=== PATIENT | female | born 1940 | race Caucasian/White ===

== ENCOUNTER 2016-06-28 11:00 | Observation (INO) | payer OTHER ==
[2016-06-28] VITALS (9 sets, daily range): BP systolic 132–158; BP diastolic 72–89; PULSE 72–81; RESP 17–20; TEMP 96.1–98.3; O2SAT 94–100
[~2016-06-28 11:00] MED LIST: Z.0.NO CURRENT MEDS
[2016-06-28] MEDS ORDERED: SODIUM CHLORIDE 0.9% FLUSH 5 ML FLUSH IVF PRN ×2 (11:15→12:30)
[2016-06-28 11:18] LABS: BASOPHIL # 0.1 TH/MM3 (0-0.2); BASOPHIL % 1.4 % (0.0-2.0); EOSINOPHIL # 0.2 TH/MM3 (0-0.4); EOSINOPHIL % 2.7 % (0.0-4.0); HEMATOCRIT 42.5 % (35.0-46.0); HEMO FLAGS DIFF FINAL; LYMPH % 17.7 % (9.0-44.0); LYMPHOCYTE # 1.2 TH/MM3 (1.0-4.8); MEAN CELL VOLUME 92.1 FL (80.0-100.0); MEAN CORPUSCULAR HEMOGLOBIN 31.4 PG (27.0-34.0); MEAN CORPUSCULAR HGB CONC 34.1 % (32.0-36.0); MONO % 8.9 % (0.0-8.0); NEUT % 69.3 % (16.0-70.0); PLATELET COUNT 336 TH/MM3 (150-450); RED BLOOD COUNT 4.62 MIL/MM3 (4.00-5.30); RED CELL DISTRIBUTION WIDTH 14.4 % (11.6-17.2); WHITE BLOOD COUNT 7.1 TH/MM3 (4.0-11.0)
[2016-06-28 11:30] LABS: CHLORIDE 102 MEQ/L (98-107); POTASSIUM 4.3 MEQ/L (3.5-5.1); SODIUM (NA) 139 MEQ/L (136-145)
[2016-06-28 11:33] LABS: ANION GAP 10 MEQ/L (5-15); BICARBONATE 27.4 MEQ/L (21.0-32.0)
[2016-06-28 11:34] LABS: BLOOD UREA NITROGEN 12 MG/DL (7-18)
--- NOTE | 2016-06-28 11:34 | PD ---
HPI Chief Complaint: Chest Pain Time Seen by Provider: 11:09 Travel History International Travel<30 days: No Contact w/Intl Traveler<30days: No Traveled to known affect area: No History of Present Illness HPI This is a 75 year old female who presents to the emergency department with chest pain. Pt. describes the pain as dull with occasional "jabs" of sharp pain , for three days, constant, not associated with exertion, radiating to the left elbow. PT. has been taking baby aspirin but it is not helping. Pt. reports the jabs get up to 8/10 when they are severe. Pt. did have a chest cold preceding this, but her cough has improved and her pain is still there. PFSH Past Medical History Medical History: Denies Significant Hx Blood Disorders: No Cancer: No Cardiovascular Problems: Yes COPD: Yes Diabetes: No Diminished Hearing: No Endocrine: No Genitourinary: No Hypertension: Yes Immune Disorder: No Musculoskeletal: No Neurologic: No Psychiatric: No Reproductive: No Respiratory: Yes Immunizations Current: No Thyroid Disease: No Tetanus Vaccination: > 5 Years Influenza Vaccination: No Past Surgical History Appendectomy: Yes Hysterectomy: Yes Other Surgery: Yes Social History Alcohol Use: Yes (WINE) Tobacco Use: Yes (1-2 cigarettes a day( not for a week )) Substance Use: No Allergies-Medications (Allergen,Severity, Reaction): Coded Allergies: No Known Allergies (Verified , 03/10/12) Reported Meds & Prescriptions Reported Meds & Active Scripts Active Review of Systems Except as stated in HPI: all other systems reviewed are Neg Physical Exam Narrative GENERAL:Well appearing, no acute distress SKIN: Warm and dry. HEAD: Atraumatic. Normocephalic. EYES: Pupils equal and round. No injection or drainage. ENT: Moist mucous membranes NECK: Trachea midline. CARDIOVASCULAR: Regular rate and rhythm. No murmur appreciated. RESPIRATORY: Mild expiratory wheezing, no accessory muscle use GASTROINTESTINAL: Abdomen soft, non-tender, nondistended. MUSCULOSKELETAL: No obvious deformities. NEUROLOGICAL: Awake and alert. No obvious cranial nerve deficits. Moving all extremities. PSYCHIATRIC: Appropriate mood and affect; insight and judgment normal. Data Data Last Documented VS Vital Signs Date Time Temp Pulse Resp B/P Pulse Ox O2 Delivery O2 Flow Rate FiO2 06/28/16 11:42 20 99 06/28/16 11:20 Room Air 06/28/16 11:15 98.3 72 158/89 Orders Electrocardiogram (06/28/16 11:10) Complete Blood Count With Diff (06/28/16 11:10) Comprehensive Metabolic Panel (06/28/16 11:10) Troponin I (06/28/16 11:10) Chest, Single Ap (06/28/16 11:10) Ecg Monitoring (06/28/16 11:10) Bilateral Bp Monitoring (06/28/16 11:10) Iv Access Insert/Monitor (06/28/16 11:10) Oximetry (06/28/16 11:10) Oxygen Administration (06/28/16 11:10) Sodium Chloride 0.9% Flush (Ns Flush) (06/28/16 11:15) Aspirin Chew (Aspirin Chew) (06/28/16 11:45) Labs Laboratory Tests Test 06/28/16 11:10 White Blood Count 7.1 TH/MM3 Red Blood Count 4.62 MIL/MM3 Hemoglobin 14.5 GM/DL Hematocrit 42.5 % Mean Corpuscular Volume 92.1 FL Mean Corpuscular Hemoglobin 31.4 PG Mean Corpuscular Hemoglobin 34.1 % Concent Red Cell Distribution Width 14.4 % Platelet Count 336 TH/MM3 Mean Platelet Volume 7.4 FL Neutrophils (%) (Auto) 69.3 % Lymphocytes (%) (Auto) 17.7 % Monocytes (%) (Auto) 8.9 % Eosinophils (%) (Auto) 2.7 % Basophils (%) (Auto) 1.4 % Neutrophils # (Auto) 5.0 TH/MM3 Lymphocytes # (Auto) 1.2 TH/MM3 Monocytes # (Auto) 0.6 TH/MM3 Eosinophils # (Auto) 0.2 TH/MM3 Basophils # (Auto) 0.1 TH/MM3 CBC Comment DIFF FINAL Differential Comment Sodium Level 139 MEQ/L Potassium Level 4.3 MEQ/L Chloride Level 102 MEQ/L Carbon Dioxide Level 27.4 MEQ/L Anion Gap 10 MEQ/L Blood Urea Nitrogen 12 MG/DL Creatinine 0.70 MG/DL Estimat Glomerular Filtration 82 ML/MIN Rate Random Glucose 85 MG/DL Calcium Level 9.0 MG/DL Total Bilirubin 0.4 MG/DL Aspartate Amino Transf 6 U/L (AST/SGOT) Alanine Aminotransferase 15 U/L (ALT/SGPT) Alkaline Phosphatase 70 U/L Troponin I LESS THAN 0.02 NG/ML Total Protein 7.7 GM/DL Albumin 4.2 GM/DL MDM Medical Decision Making Medical Screen Exam Complete: Yes Emergency Medical Condition: Yes Interpretation(s) EKG: Normal sinus rhythm with no ST changes Vital signs are reassuring No leukocytosis Electrolytes are reassuring Troponin is normal Differential Diagnosis Acute coronary syndrome, costochondritis, pneumonia, pleural effusion, pulmonary embolism Narrative Course This is a 75-year-old female who presents to the emergency department with a history of mild coronary artery disease with atypical chest pain. She was placed in a monitor and an IV was established. She was given aspirin. EKG is nonischemic. Labs are reassuring including a normal troponin. Patient says her last stress test was at least 2 years ago. I think she requires observation for serial cardiac enzymes and risk stratification. Diagnosis Primary Impression: Chest pain Qualified Code: R07.89 - Other chest pain Admitting Information Admitting Physician Requests: Observation Marylu Charles MD Jun 28, 2016 11:34
[2016-06-28 11:36] LABS: ALT (GPT) 15 U/L (10-53); AST (GOT) 6 U/L (15-37)
[2016-06-28 11:37] LABS: GLOMERULAR FILTRATION RATE 82 ML/MIN (>89)
[2016-06-28 11:38] LABS: TOTAL BILIRUBIN ADULT 0.4 MG/DL (0.2-1.0)
[2016-06-28 11:39] LABS: ALKALINE PHOSPHATASE 70 U/L (45-117)
[2016-06-28] MEDS ORDERED: ASPIRIN 81 MG CHEW TAB CHEW ONE (11:45)
--- NOTE | 2016-06-28 12:26 | RADHPO ---
EXAM DATE/TIME: 06/28/2016 11:48 [facility] COMPARISON: CHEST SINGLE AP, March 08, 2012, 15:24. INDICATIONS : Chest pain (dull ache) x 3 days. MEDICAL HISTORY : Hypertension. Chronic obstructive pulmonary disease. SURGICAL HISTORY : Arthroscopy. Hysterectomy. ENCOUNTER: Initial ACUITY: 3 days PAIN SCORE: 6/10 LOCATION: chest FINDINGS: A single view of the chest demonstrates minimal linear scarring or atelectasis at the bases. No effus ion. No pneumothorax. Heart size within normal limits. Aorta mildly tortuous. CONCLUSION: 1. Minimal basilar atelectasis or scarring. No effusion or pneumothorax. Mild scoliosis. Manuel Gold MD on June 28, 2016 at 12:21 Board Certified Radiologist. This report was verified electronically.
[2016-06-28] MEDS ORDERED: MORPHINE SULFATE 4 MG/ML INJ IV PRN (12:30)
[2016-06-28] MEDS ORDERED: ONDANSETRON HCL 4 MG/2 ML VIAL IV PRN (12:30)
[2016-06-28] MEDS ORDERED: ACETAMINOPHEN 500 MG CPLT PO PRN (12:30)
[2016-06-28] MEDS ORDERED: NITROGLYCERIN 0.4 MG SL 25 TABS/BTL SL PRN (12:30)
[2016-06-28 14:41] LABS: CREATINE KINASE 47 U/L (26-192)
--- NOTE | 2016-06-28 15:27 | HHI.HP ---
[facility] Zachary Josue MD Admission Diagnosis chest pain Diagnoses: (1) Chest pain Diagnosis: Principal (2) Tobacco use Diagnosis: Secondary Chief Complaint: Chest pain Travel History International Travel<30 Days: No Contact w/Intl Traveler <30 Da: No Traveled to Known Affected Are: No History of Present Illness 75-year-old female with known history of tobacco use who presented to the hospital because of chest pain. Patient states over the last 3 days she has been having intermittent chest pain located in the middle part of her chest with intermittent radiation to the left shoulder. She indicates that the pain can happen any time whether she is exerting herself or at rest. She states that sometimes when she twists the wrong way the pain will happen. Patient characterizes the pain as 8/10 on pain scale at its worst. Lasting for a couple seconds at a time. He denies any nausea, vomiting, diaphoresis, shortness of breath, dyspnea. Patient never had a cardiac workup done in the past. She has no chronic medical illnesses. Risk factors include tobacco use and age. Commended by ER physician that patient be observed in the hospital for further evaluation and management. Review of Systems Constitutional: DENIES: Diaphoretic episodes, Fatigue, Fever, Weight gain, Weight loss, Chills, Dizziness, Change in appetite, Night Sweats Eyes: DENIES: Blurred vision, Diplopia, Eye inflammation, Eye pain, Vision loss , Double Vision Ears, nose, mouth, throat: DENIES: Vertigo, Nasal discharge, Throat pain, Ear Pain, Running Nose, Sinus Pain Respiratory: DENIES: Apneas, Cough, Snoring, Wheezing, Hemoptysis, Sputum production, Shortness of breath Cardiovascular: COMPLAINS OF: Chest pain, DENIES: Palpitations, Syncope, Dyspnea on Exertion, Lower Extremity Edema, Orthopnea Gastrointestinal: DENIES: Abdominal pain, Black stools, Bloody stools, Constipation, Diarrhea, Nausea, Vomiting, Difficulty Swallowing, Anorexia Neurologic: DENIES: Abnormal gait, Headache, Localized weakness, Paresthesias, Seizures, Speech Problems, Tremor, Poor Balance Past Family Social History Past Medical History Tobacco use Past Surgical History Appendectomy Hysterectomy Reported Medications Reported Meds & Active Scripts Active Allergies: Coded Allergies: No Known Allergies (Verified , 03/10/12) Family History Reviewed and significant for cancer Social History Patient is down to 1-2 cigarettes daily. She was up to 1 pack a cigarettes a day since she was 19 years old. Drinks wine occasionally. Denies any illicit drug use Physical Exam Vital Signs Vital Signs Date Time Temp Pulse Resp B/P Pulse Ox O2 Delivery O2 Flow Rate FiO2 06/28/16 14:21 100 21 06/28/16 13:53 78 20 132/72 98 06/28/16 12:32 74 20 154/82 98 06/28/16 11:42 20 99 06/28/16 11:21 99 06/28/16 11:20 99 Room Air 06/28/16 11:15 98.3 72 20 158/89 99 Physical Exam GENERAL: Well-developed, well-nourished, in no acute distress. alert and orientated HEENT: Head is normocephalic without any lesions or masses noted. Facial features are symmetric. Eyes: Pupils equal round reactive to light. Extraocular muscles are intact. Conjunctivae were clear. Oropharyngeal: Pharynx without any erythema edema. Tongue is midline without deviation. Buccal mucosa is moist without any masses or lesions NECK: Supple without any masses. Trachea midline no deviation. No JVD, no bruits are appreciated CARDIAC: Regular rhythm, regular rate. S1/S2 are heard. No murmurs gallops or rubs. LUNGS: Clear to auscultation bilaterally. No wheeze, rhonchi or rales. No use of accessory muscles on inspiration or expiration. ABDOMEN: Soft, nontender. Nondistended. Bowel sounds heard in all 4 quadrants. No organomegaly or masses. Negative rebound, negative guarding EXTREMITIES: No edema, pulses are equal bilaterally. No cyanosis or clubbing NEUROLOGY: Mood and affect appear appropriate. Cranial nerves II through XII grossly intact. Muscle strength 5/5 in upper and lower extremities bilaterally. Deep tendon reflexes are 2+ in upper and lower extremities bilaterally. Laboratory Laboratory Tests Test 06/28/16 06/28/16 11:10 14:05 White Blood Count 7.1 Red Blood Count 4.62 Hemoglobin 14.5 Hematocrit 42.5 Mean Corpuscular Volume 92.1 Mean Corpuscular Hemoglobin 31.4 Mean Corpuscular Hemoglobin 34.1 Concent Red Cell Distribution Width 14.4 Platelet Count 336 Mean Platelet Volume 7.4 Neutrophils (%) (Auto) 69.3 Lymphocytes (%) (Auto) 17.7 Monocytes (%) (Auto) 8.9 Eosinophils (%) (Auto) 2.7 Basophils (%) (Auto) 1.4 Neutrophils # (Auto) 5.0 Lymphocytes # (Auto) 1.2 Monocytes # (Auto) 0.6 Eosinophils # (Auto) 0.2 Basophils # (Auto) 0.1 CBC Comment DIFF FINAL Differential Comment Sodium Level 139 Potassium Level 4.3 Chloride Level 102 Carbon Dioxide Level 27.4 Anion Gap 10 Blood Urea Nitrogen 12 Creatinine 0.70 Estimat Glomerular Filtration 82 Rate Random Glucose 85 Calcium Level 9.0 Total Bilirubin 0.4 Aspartate Amino Transf 6 (AST/SGOT) Alanine Aminotransferase 15 (ALT/SGPT) Alkaline Phosphatase 70 Troponin I LESS THAN 0.02 LESS THAN 0.02 Total Protein 7.7 Albumin 4.2 Total Creatine Kinase 47 Result Diagram: 06/28/16 1110 06/28/16 1110 Imaging Last Impressions Chest X-Ray 06/28/16 1110 Signed Impressions: Service Date/Time: Tuesday, June 28, 2016 11:48 - CONCLUSION: 1. Minimal basilar atelectasis or scarring. No effusion or pneumothorax. Mild scoliosis. Manuel Gold MD Assessment and Plan Assessment and Plan Chest pain, atypical Patient with risk factors to include age, tobacco use We'll continue to rule patient out for any acute coronary event with serial cardiac enzymes and serial EKGs Patient unable pursue exercise stress test, if patient ruled out for acute coronary event, will pursue nuclear stress test Continue aspirin and nitroglycerin as needed Tobacco use Counseled on cessation To Sequential compression devices Written by Gopi Villavicencio PA-C, acting as scribe for Dr. Kilpatrick on 06/28/16 at 1535. The documentation accurately reflects the work and decisions performed face-to- face by Dr. Kilpatrick on 06/28/16 at 1535. Problem Qualifiers (1) Chest pain: Qualified Code: R07.89 - Other chest pain Gopi Villavicencio Jun 28, 2016 15:27
[2016-06-28 17:54] LABS: CREATINE KINASE 46 U/L (26-192)
[2016-06-28] MEDS: SODIUM CHLORIDE 0.9% FLUSH 5 ML FLUSH IVF SCH (22:12)
[2016-06-29] VITALS: BP 137/80; PULSE 72; RESP 20; TEMP 97.1; O2SAT 96
[2016-06-29 04:00] VITALS: BP 148/88; PULSE 80; RESP 20; TEMP 96.9; O2SAT 96
[2016-06-29 07:00] VITALS: PULSE 74
[2016-06-29 08:00] VITALS: BP 121/77; PULSE 82; RESP 20; TEMP 96.9; O2SAT 94
[2016-06-29] MEDS: SODIUM CHLORIDE 0.9% FLUSH 5 ML FLUSH IVF SCH (09:00)
[2016-06-29] MEDS ORDERED: ASPIRIN 325 MG TAB PO SCH (09:00)
[2016-06-29] MEDS ORDERED: REGADENOSON INJ 0.4 MG/5 ML SYR IV ONE (09:45)
[2016-06-29] MEDS ORDERED: PNEUMOCOCCAL POLYVALENT INJ 25 MCG/0.5 ML SYR IM ONE (10:00)
--- NOTE | 2016-06-29 11:11 | RADHPO ---
EXAM DATE/TIME: 06/29/2016 09:22 [facility] COMPARISON: MYOCARDIAL PERF PHARM SPECT, GATED W/EF, March 10, 2012, 10:06. INDICATIONS : Chest pain for 3 days. Current smoker. Angina. DOSE: 27.4 mCi Tc99m Myoview at stress. 8.5 mCi Tc99m Myoview at rest. 0.4 mg Lexiscan STRESS SYMPTOMS: Chest heaviness, shortness of breath and lightheaded. EJECTION FRACTION: > 70% MEDICAL HISTORY : Hypertension. Chronic obstructive pulmonary disease. SURGICAL HISTORY : Hysterectomy. Cholecystectomy. ENCOUNTER: Initial ACUITY: 3 days PAIN SCALE: 8/10 LOCATION: Bilateral chest TECHNIQUE: The patient underwent pharmacologic stress with infusion of prescribed dose. Continuous ECG tracing was monitored during stress. Gated SPECT imaging was performed after stress and conventional SPECT i maging was performed at rest. The examination was performed on a SPECT/CT scanner, both attenuation and non-corrected datasets were reviewed. FINDINGS: DISTRIBUTION: The maximum perfused segment at stress is in the lateral wall. PERFUSION STUDY: The pattern of perfusion at stress is within normal limits. GATED STUDY: There is intact wall motion and thickening without hypokinetic or dyskinetic segments. CONCLUSION: 1. Unremarkable myocardial perfusion scan. RISK CATEGORY: Low (<1% Annual Mortality Rate) Maximo Ricci MD on June 29, 2016 at 11:09 Board Certified Radiologist. This report was verified electronically.
--- NOTE | 2016-06-29 11:16 | HHI.DCPOC ---
Discharge Care Plan Diagnosis: (1) Chest pain Your Health Problems Are: Chest Pain Goals to Promote Your Health * To prevent worsening of your condition and complications * To maintain your health at the optimal level Directions to Meet Your Goals Take your medications as prescribed Follow your dietary instruction Follow activity as directed Keep your appointments as scheduled Take your immunizations and boosters as scheduled If your symptoms worsen call your PCP, if no PCP go to Urgent Care Center or Emergency Room Smoking is Dangerous to Your Health. Avoid second hand smoke Call the 24-hour hour crisis hotline for domestic abuse at Gopi Villavicencio Jun 29, 2016 11:16
--- NOTE | 2016-06-29 11:21 | HHI.PR ---
Subjective Remarks Patient seen and examined today. Patient states that she did have some mild chest discomfort again this morning. Patient has undergone stress test which was negative. Results were given to the patient she is quite happy of the outcome. I'll notify the patient follow-up with her primary medical doctor to evaluate for any other etiologies in outpatient setting. Objective Vitals Vital Signs Date Time Temp Pulse Resp B/P Pulse Ox O2 Delivery O2 Flow Rate FiO2 06/29/16 08:00 96.9 82 20 121/77 94 06/29/16 04:00 96.9 80 20 148/88 96 06/29/16 00:00 97.1 72 20 137/80 96 06/28/16 20:15 81 06/28/16 20:07 94 21 06/28/16 20:00 96.4 73 20 133/80 94 06/28/16 17:45 96.1 76 17 137/80 96 06/28/16 14:21 100 21 06/28/16 13:53 78 20 132/72 98 06/28/16 12:32 74 20 154/82 98 06/28/16 11:42 20 99 06/28/16 11:21 99 06/28/16 11:20 99 Room Air I/O 06/28/16 06/28/16 06/28/16 06/29/16 06/29/16 06/29/16 07:00 15:00 23:00 07:00 15:00 23:00 Intake Total 240 ml 0 ml 200 ml Balance 240 ml 0 ml 200 ml Intake Oral 240 ml 0 ml 200 ml # Voids 2 1 2 # Bowel Movements 0 0 Result Diagram: 06/28/16 1110 06/28/16 1110 Objective Remarks GENERAL: Well-developed, well-nourished, in no acute distress. alert and orientated HEENT: Head is normocephalic without any lesions or masses noted. Facial features are symmetric. Eyes: Extraocular muscles are intact. Conjunctivae were clear. NECK: Supple without any masses. Trachea midline no deviation. No JVD, no bruits are appreciated CARDIAC: Regular rhythm, regular rate. S1/S2 are heard. No murmurs gallops or rubs. LUNGS: Clear to auscultation bilaterally. No wheeze, rhonchi or rales. No use of accessory muscles on inspiration or expiration. ABDOMEN: Soft, nontender. Nondistended. Bowel sounds heard in all 4 quadrants. No organomegaly or masses. Negative rebound, negative guarding EXTREMITIES: No edema, pulses are equal bilaterally. No cyanosis or clubbing NEUROLOGY: Mood and affect appear appropriate. Cranial nerves II through XII grossly intact. Moving all extremities, speech is clear Urinary Catheter: No Vascular Central Line Catheter: No A/P Assessment and Plan Chest pain, atypical Patient with risk factors to include age, tobacco use Serial cardiac enzymes were performed which remained negative. Patient ruled out for acute coronary event Serial EKGs were performed and reviewed by myself which shows sinus rhythm without any changes Patient has undergone nuclear stress test which remained negative for any ischemia Continue aspirin and nitroglycerin as needed Tobacco use Counseled on cessation To Sequential compression devices Written by Gopi Villavicencio PA-C, acting as scribe for Dr. Kilpatrick on 06/29/16 at 1120. The documentation accurately reflects the work and decisions performed face-to- face by Dr. Kilpatrick on 06/29/16 at 1120. Discharge Planning Discharge home in stable condition Activity: Ad denzel. Diet: Regular diet Medications per medication reconciliation Follow-up primary medical doctor in one week Gopi Villavicencio Jun 29, 2016 11:21
[2016-06-29 12:00] VITALS: BP 127/72; PULSE 83; RESP 18; TEMP 98.2; O2SAT 95
--- NOTE | 2016-06-29 15:46 | EKG ---
Date Performed: 06/28/2016 Time Performed: 14:07:30 PTAGE: 75 years EKG: Sinus rhythm . Septal T wave changes are nonspecific Borderline ECG PREVIOUS TRACING : 03/09/2012 03.19 Since previous tracing, no significant change noted DOCTOR: Maximo Edward Interpretating Date/Time 06/29/2016 15:44:30
--- NOTE | 2016-06-29 15:46 | EKG ---
Date Performed: 06/28/2016 Time Performed: 17:10:58 PTAGE: 75 years EKG: Sinus rhythm Normal ECG PREVIOUS TRACING : 06/28/2016 14.07 Since previous tracing, no significant change noted DOCTOR: Maximo Edward Interpretating Date/Time 06/29/2016 15:44:10
--- NOTE | 2016-06-29 15:47 | EKG ---
Date Performed: 06/28/2016 Time Performed: 11:08:40 PTAGE: 75 years EKG: Sinus rhythm Normal ECG PREVIOUS TRACING : 03/09/2012 03.19 Since previous tracing, no significant change noted DOCTOR: Maximo Edward Interpretating Date/Time 06/29/2016 15:45:10
--- NOTE | 2016-06-29 16:06 | TR ---
Date Performed: 06/29/2016 Time Performed: 09:31:00 DOCTOR: Maximo Edward DRUG LIST: CLINICAL HISTORY: CHEST PAIN REASON FOR TEST: Chest pain. REASON FOR ENDING: OBSERVATION: CONCLUSION: Lexiscan stress test was performed under standard four minute protocol. Radionuclid e was injected one minute prior to ending the test. No electrocardiographic abormalities were present to suggest ischemia. Nuclear imaging and interpretation are pending. COMMENTS:
== END 2016-06-29 12:47 | disposition home or self-care (01) ==
LOC: PHED 11:00 → PHEDA 12:23 → PH3A 13:51
PROVIDERS: ADMIT Family Medicine; ATTEND Family Medicine
DX: R07.9 Chest pain, unspecified (principal); I10 Essential (primary) hypertension; I25.10 Atherosclerotic heart disease of native coronary artery without angina pectoris; J44.9 Chronic obstructive pulmonary disease, unspecified; Z72.0 Tobacco use; Z23 Encounter for immunization
CPT/HCPCS: 71010; 78452; 80053; 82550; 84484; 85025; 90732; 93005; 93017; 99285; A9502; G0378; J2785